=== PATIENT | female | born 1965 | race Caucasian/White ===

== ENCOUNTER → 2017-09-26 | Outpatient (CLI) | payer OTHER ==
--- NOTE | 2017-09-26 13:12 | BD ---
EXAMINATION TYPE: MG DEXA axial skeleton. DATE OF EXAM: 09/26/2017 COMPARISON: NONE CLINICAL HISTORY: N95.1 Post Menopausal Height: 5 FT 5 1/2 IN Weight: 178 FRAX RISK QUESTIONS: Alcohol (3 or more units per day): NO Family History (Parent hip fracture): NO Glucocorticoids (More than 3mos): NO (Ex: prednisone, prednisolone, methylprednisolone, dexamethasone, and hydrocortisone). History of Fracture in Adulthood: NO Secondary Osteoporosis: 1. Type 1 Diabetes: NO 2. Hyperthyroidism: NO 3. Menopause before 45: NO 4. Malnutrition: NO 5. Chronic liver disease: NO Rheumatoid Arthritis: NO Current Tobacco Use: NO RISK FACTORS HISTORY OF: Active: YES Postmenopausal woman: AGE 49 MEDICATIONS: Additional Medications: NONE ESTROVEN OTC Additional History: EXAM MEASUREMENTS: Bone mineral densitometry was performed using the [employer] System. Bone mineral density as measured about the Lumbar spine is: ----- L1-L4(G/cm2): 1.184 T Score Values are as follows: ----- L2: 0.1 ----- L3: 0.4 ----- L4: -0.5 ----- L1-L4: 0.0 BASELINE Bone mineral density about the R hip (g/cm2): 0.952 Bone mineral density about the L hip (g/cm2): 0.935 T Score values are as follows: -----R Neck: -0.6 -----L Neck: -0.7 -----R Total: 0.8 -----L Total: 0.6 BASELINE IMPRESSION: No evidence for osteoporosis or osteopenia. NOTE: T-SCORE=SD OF THE YOUNG ADULT MEAN.
--- NOTE | 2017-09-26 14:25 | MM ---
Reason for exam: screening (asymptomatic). Last mammogram was performed 4 years and 3 months ago. History: Patient is postmenopausal. Family history of breast cancer in mother at age 60. Physical Findings: A clinical breast exam by your physician is recommended on an annual basis and results should be correlated with mammographic findings. MG 3D Screening Mammo W/Cad Bilateral CC and MLO view(s) were taken. Prior study comparison: July 10, 2013, bilateral digital screening mammo w/CAD. May 13, 2008, mammogram, performed at [facility]. The breast tissue is heterogeneously dense. This may lower the sensitivity of mammography. There are stable benign calcifications. There is no discrete abnormality. No significant changes when compared with prior studies. ASSESSMENT: Benign, BI-RAD 2 RECOMMENDATION: Routine screening mammogram of both breasts in 1 year.
== END | disposition home or self-care (01) ==
LOC: RADMAMWWP 09:33
PROVIDERS: ATTEND Obstetrics & Gynecology
DX: Z12.31 Encounter for screening mammogram for malignant neoplasm of breast (principal); Z13.820 Encounter for screening for osteoporosis
CPT/HCPCS: 77063; 77067; 77080

== ENCOUNTER → 2019-02-17 | Outpatient (CLI) | payer BC ==
--- NOTE | 2019-02-18 13:55 | MM ---
Reason for exam: screening (asymptomatic). Last mammogram was performed 1 year and 5 months ago. History: Patient is postmenopausal. Family history of breast cancer in mother at age 60. Physical Findings: A clinical breast exam by your physician is recommended on an annual basis and results should be correlated with mammographic findings. MG 3D Screening Mammo W/Cad Bilateral CC and MLO view(s) were taken. Prior study comparison: September 26, 2017, bilateral MG 3d screening mammo w/cad. July 10, 2013, bilateral digital screening mammo w/CAD. The breast tissue is heterogeneously dense. This may lower the sensitivity of mammography. Benign appearing bilateral calcifications. No suspicious abnormality. ASSESSMENT: Benign, BI-RAD 2 RECOMMENDATION: Routine screening mammogram of both breasts in 1 year.
== END | disposition home or self-care (01) ==
LOC: RADMAMWWP 09:58
PROVIDERS: ATTEND Internal Medicine
DX: Z12.31 Encounter for screening mammogram for malignant neoplasm of breast (principal)
CPT/HCPCS: 77063; 77067

== ENCOUNTER 2019-05-05 11:53 | Day surgery (SDC) | payer BC ==
[2019-04-29 14:37] VITALS: BMI 28.1
[~2019-05-05 11:53] MED LIST: LACTATED RINGERS 1,000 ML IV SCH; LIDOCAINE 1% 20 ML VIAL (10MG/ML) FOR IV START INTRADERMA PRN
[2019-05-05 12:10] VITALS: RESP 18; TEMP 97.7
[2019-05-05] MEDS ORDERED: PROPOFOL 10 MG/ML 20 ML VIAL IV ONE (13:14)
--- NOTE | 2019-05-05 13:43 | P.PCN ---
Date of Procedure: 05/05/19 Description of Procedure: BRIEF HISTORY: Patient is a 54-year-old pleasant female scheduled for an elective colonoscopy as a part of screening for malignant neoplasm of the colon. She denies any family history of colon cancer, change in bowel habits, blood per rectum or abdominal pain. No prior colonoscopies reported. PROCEDURE PERFORMED: Colonoscopy. PREOPERATIVE DIAGNOSIS: Screening for malignant neoplasm of the colon, no prior colonoscopies. ESTIMATED BLOOD LOSS: Minimal. IV sedation per Anesthesia. PROCEDURE: After informed consent was obtained, the patient, was brought into the endoscopy unit. IV sedation was administered by Anesthesia under continuous monitoring. Digital rectal examination was normal. Initially the Olympus CF-190 flexible video colonoscope was then inserted in the rectum, gradually advanced into the cecum without any difficulty. Careful examination was performed as the scope was gradually being withdrawn. Ileocecal valve and the appendiceal orifice were visualized and appeared normal. Prep was excellent. Mucosa of the cecum, ascending colon, transverse colon, descending colon, sigmoid colon, and rectum appeared normal. The sigmoid colon was somewhat tortuous however was able to be transversed. Retroflexion was performed in the rectum and no lesions were seen, with mild internal hemorrhoids noted. The patient tolerated the procedure well. IMPRESSION: Normal-appearing colon from rectum to cecum. Mild internal hemorrhoids. RECOMMENDATIONS: Findings of this examination were discussed with the patient and her . Okay to resume diet. Okay to resume medications. Recommend repeat colonoscopy in 10 years, or sooner if signs or symptoms which warrant further evaluation develop.
[2019-05-05 14:08] VITALS: BP 143/81; PULSE 70
== END 2019-05-05 14:15 | disposition home or self-care (01) ==
LOC: ORWHC2ENDO 11:53
PROVIDERS: ATTEND Internal Medicine
DX: Z12.11 Encounter for screening for malignant neoplasm of colon (principal); K64.8 Other hemorrhoids; E78.5 Hyperlipidemia, unspecified; Z79.890 Hormone replacement therapy; Z79.899 Other long term (current) drug therapy
CPT/HCPCS: J2704; G0121; 45378

== ENCOUNTER → 2022-09-06 | Outpatient (CLI) | payer MEDICAID ==
--- NOTE | 2022-09-07 04:47 | MR ---
EXAMINATION TYPE: MR shoulder LT wo con DATE OF EXAM: 09/06/2022 COMPARISON: Outside left shoulder x-ray one day earlier. HISTORY: Left shoulder pain and limited range of motion. TECHNIQUE: Multiplanar, multisequence imaging of the left shoulder is performed without contrast. FINDINGS: Rotator Cuff: Fluid signal surrounds the distal supraspinatus tendon near the myotendinous junction w ith increased signal seen in the tendon distally and significant partial tearing near the humeral hea d noted. Infraspinatus tendon intact. Rotator cuff muscle bulk maintained. Acromioclavicular Joint: Moderate narrowing and capsular hypertrophy. Mild to moderate inferior spurr ing. Type II downsloping acromion with loss of underlying fat plane. Glenohumeral Joint: Moderate size joint effusion. There is glenohumeral joint narrowing with some spu rring from the inferior medial humeral head coronal image 16. Labrum: Increased signal superior labrum consistent with degenerative tearing. Biceps Tendon: The long head of biceps is in normal location within bicipital groove. Bone marrow signal: No focal abnormal marrow signal is appreciated. Other: No additional significant abnormality is appreciated. IMPRESSION: 1. Tendinosis and significant partial tearing of the distal supraspinatus tendon. 2. Degenerative changes in left shoulder as detailed above. Type II downsloping acromion with suggest ion of underlying impingement.
== END | disposition home or self-care (01) ==
LOC: RADMRIMAIN 09:30
PROVIDERS: ATTEND Orthopaedic Surgery
DX: M75.112 Incomplete rotator cuff tear or rupture of left shoulder, not specified as traumatic (principal); M19.012 Primary osteoarthritis, left shoulder

== ENCOUNTER → 2023-06-04 | Outpatient (CLI) | payer MEDICAID ==
--- NOTE | 2023-06-04 14:01 | MM ---
Reason for Exam: Screening (asymptomatic). Last mammogram was performed 4 year(s) and 3 month(s) ago. Patient History: Menarche at age 11. First Full-Term at age 22. Postmenopausal. Mother had breast cancer, age 60. Risk Values: Yeni 5 year model risk: 2.7%. NCI Lifetime model risk: 13.9%. Prior Study Comparison: 07/10/2013 Bilateral Screening Mammogram, [facility]. 09/26/2017 Bilateral Screening Mammogram, [facility]. 02/17/2019 Bilateral Screening Mammogram, [facility]. Tissue Density: The breast tissue is heterogeneously dense. This may lower the sensitivity of mammography. Findings: Analyzed By CAD. There is no suspicious group of microcalcifications or new suspicious mass. Benign-appearing calcifications left breast. Overall Assessment: Negative, BI-RAD 1 Management: Screening Mammogram of both breasts in [address] [facility] will attempt to contact patient to return for supplemental views and ultrasound if indicated. Patient should continue monthly self-breast exams. A clinical breast exam by your physician is recommended on an annual basis. This exam should not preclude additional follow-up of suspicious palpable abnormalities. Note on Yeni scores and lifetime risk: 1. A Yeni score greater than 3% is considered moderate risk. If this is the case, consider specialist referral to assess eligibility for a risk reducing agent. 2. If overall lifetime risk for the development of breast cancer is 20% or higher, the patient may qualify for future screening with alternating mammogram and breast MRI. Electronically signed and approved by: Pernell Alexis DO
== END | disposition home or self-care (01) ==
LOC: RADMAMWWP 11:30
PROVIDERS: ATTEND Internal Medicine
DX: Z12.31 Encounter for screening mammogram for malignant neoplasm of breast (principal); Z78.0 Asymptomatic menopausal state; Z80.3 Family history of malignant neoplasm of breast
CPT/HCPCS: 77063; 77067

== ENCOUNTER → 2023-10-05 | Outpatient (CLI) | payer BC ==
--- NOTE | 2023-10-05 16:27 | US ---
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 Mild pelvocaliectasis Left Kidney: Mild pelvocaliectasis Bladder: wnl Bilateral Jets seen: yes Incidental colonhydropic GB measuring 13.5 cm long. Clustered gallstones near the gallbladder neck region. No surrounding fluid or wall thickening. IMPRESSION: 1. Mild bilateral pelvicaliectasis. This may be a transient finding. Short interval follow-up to excl ude early hydronephrosis. 2. Cholelithiasis and hydropic gallbladder. The excessive distention may be due to fasting state. Cli nically correlate. If concern for early acute cholecystitis, follow-up ultrasound or HIDA scan.
== END | disposition home or self-care (01) ==
LOC: RADUSWWP 12:07
PROVIDERS: ATTEND Internal Medicine
DX: K80.20 Calculus of gallbladder without cholecystitis without obstruction (principal); K82.1 Hydrops of gallbladder; N28.89 Other specified disorders of kidney and ureter; R94.4 Abnormal results of kidney function studies; R80.8 Other proteinuria
CPT/HCPCS: 76770

== ENCOUNTER → 2023-11-16 | Outpatient (CLI) | payer BC ==
[2023-11-16 16:06] LABS: Blood Urea Nitrogen 17.2 mg/dL (9.0-27.0); Chloride 104 mmol/L (96-109); Glucose 125 mg/dL (70-110); Sodium 142 mmol/L (135-145)
[2023-11-16 16:07] LABS: Calcium 9.2 mg/dL (8.7-10.3); Carbon Dioxide 27.6 mmol/L (21.6-31.8)
== END | disposition home or self-care (01) ==
LOC: LABWHC1 12:13
PROVIDERS: ATTEND Nurse Practitioner Acute Care
DX: N18.9 Chronic kidney disease, unspecified (principal)
CPT/HCPCS: 36415; 80048

== ENCOUNTER → 2024-03-04 | Outpatient (CLI) | payer BC ==
[2024-03-04 12:47] LABS: Creatinine,Urine Random 344.9 mg/dL
[2024-03-04 14:17] LABS: Appearance,Urine Clear (Clear); Bilirubin,Urine Negative (Negative); Blood,Urine Negative (Negative); Color,Urine Dark Yellow (Yellow); Ketones,Urine Trace (Negative); Nitrite,Urine Negative (Negative); Specific Gravity,Urine 1.024 (1.001-1.030); Urobilinogen,Urine 0.2 E.U./DL
[2024-03-04 14:19] LABS: Microalbumin Creatinine Ratio <4 mg/g Cr (0-30)
[2024-03-04 14:24] LABS: HCT 41.8 % (37.2-46.3); MCH 31.9 pg (27.0-32.0); MCHC 33.5 g/dL (32.0-37.0); MCV 95.2 FL (80.0-97.0); Mean Platelet Volume 8.8 FL (9.5-12.2); NRBC Per 100 WBC 0 X 10*3/uL (0.00-0.01); Platelet Count 396 X 10*3/uL (140-440); RBC 4.39 X 10*6/uL (4.10-5.20); RDW 12.5 % (11.5-14.5); WBC 8.78 X 10*3/uL (4.50-10.00)
[2024-03-04 14:25] LABS: Bacteria,Urine None Seen (None Seen)
[2024-03-04 14:34] LABS: BUN/Creat Ratio 16.18 Ratio (12.00-20.00); Blood Urea Nitrogen 17.8 mg/dL (9.0-27.0); Calcium 9.5 mg/dL (8.7-10.3); Carbon Dioxide 23.6 mmol/L (21.6-31.8); Chloride 108 mmol/L (96-109); Glucose 100 mg/dL (70-110); Magnesium 2.2 mg/dL (1.5-2.4); Phosphorus 3.8 mg/dL (2.4-5.1); Potassium 4.5 mmol/L (3.5-5.5); Sodium 144 mmol/L (135-145)
== END | disposition home or self-care (01) ==
LOC: LABWHC1 11:24
PROVIDERS: ATTEND Nurse Practitioner Acute Care
DX: N39.0 Urinary tract infection, site not specified (principal); R80.9 Proteinuria, unspecified; N18.9 Chronic kidney disease, unspecified; D63.1 Anemia in chronic kidney disease
CPT/HCPCS: 36415; 80048; 81001; 82043; 82570; 83735; 84100; 84156; 85027

== ENCOUNTER → 2024-03-21 | Outpatient (CLI) | payer BC ==
[2024-03-21 15:41] LABS: BUN/Creat Ratio 16.55 Ratio (12.00-20.00); Blood Urea Nitrogen 18.2 mg/dL (9.0-27.0); Calcium 9.8 mg/dL (8.7-10.3); Carbon Dioxide 24.5 mmol/L (21.6-31.8); Chloride 104 mmol/L (96-109); Glucose 104 mg/dL (70-110); Potassium 4.7 mmol/L (3.5-5.5); Sodium 140 mmol/L (135-145)
== END | disposition home or self-care (01) ==
LOC: LABWHC1 10:17
PROVIDERS: ATTEND Nurse Practitioner Acute Care
DX: N18.9 Chronic kidney disease, unspecified (principal)
CPT/HCPCS: 36415; 80048

== ENCOUNTER → 2024-08-27 | Outpatient (CLI) | payer BC ==
[2024-08-27 16:07] LABS: Blood Urea Nitrogen 16.8 mg/dL (9.0-27.0); Calcium 9.4 mg/dL (8.7-10.3); Carbon Dioxide 26.4 mmol/L (21.6-31.8); Chloride 105 mmol/L (96-109); Glucose 95 mg/dL (70-110); Potassium 4.3 mmol/L (3.5-5.5); Sodium 141 mmol/L (135-145)
== END | disposition home or self-care (01) ==
LOC: LABWHC1 09:13
PROVIDERS: ATTEND Internal Medicine
DX: N18.9 Chronic kidney disease, unspecified (principal)
CPT/HCPCS: 36415; 80048

== ENCOUNTER → 2024-09-19 | Outpatient (CLI) | payer BC ==
--- NOTE | 2024-09-22 07:53 | MM ---
Reason for Exam: Screening (asymptomatic). Last mammogram was performed 1 year(s) and 4 month(s) ago. Patient History: Menarche at age 11. First Full-Term at age 22. Postmenopausal. Mother had breast cancer, age 60. Risk Values: Yeni 5 year model risk: 2.7%. NCI Lifetime model risk: 13.6%. Prior Study Comparison: 09/26/2017 Bilateral Screening Mammogram, [facility]. 02/17/2019 Bilateral Screening Mammogram, [facility]. 06/04/2023 Bilateral MG 3D screening mammo w/cad, [facility]. Tissue Density: The breasts are heterogeneously dense, which may obscure small masses. Findings: Analyzed By CAD. Right breast: There is no suspicious group of microcalcifications or new suspicious mass. Left breast: There is no suspicious group of microcalcifications or new suspicious mass. Overall Assessment: Negative, BI-RAD 1 Management: Screening Mammogram of both breasts in [address] [facility] will attempt to contact patient to return for supplemental views and ultrasound if indicated. Patient should continue monthly self-breast exams. A clinical breast exam by your physician is recommended on an annual basis. This exam should not preclude additional follow-up of suspicious palpable abnormalities. Note on Yeni scores and lifetime risk: 1. A Yeni score greater than 3% is considered moderate risk. If this is the case, consider specialist referral to assess eligibility for a risk reducing agent. 2. If overall lifetime risk for the development of breast cancer is 20% or higher, the patient may qualify for future screening with alternating mammogram and breast MRI. [facility], , 09/22/2024 7:50 AM. Electronically signed and approved by: Pernell Alexis DO
== END | disposition home or self-care (01) ==
LOC: RADMAMWWP 11:15
PROVIDERS: ATTEND Internal Medicine
DX: Z12.31 Encounter for screening mammogram for malignant neoplasm of breast (principal); Z78.0 Asymptomatic menopausal state; Z80.3 Family history of malignant neoplasm of breast; R92.333 Mammographic heterogeneous density, bilateral breasts
CPT/HCPCS: 77063; 77067

== ENCOUNTER → 2025-03-19 | Outpatient (CLI) | payer BC ==
--- NOTE | 2025-03-19 09:10 | US ---
EXAMINATION TYPE: US abdomen complete DATE OF EXAM: 03/19/2025 COMPARISON: Renal ultrasound 10/05/2023 CLINICAL INDICATION: Female, 59 years old with history of R10.9 UNSPE ABD PAIN; pain/bloating/diarrhe a x 1 month TECHNIQUE: Grayscale and color Doppler imaging of the abdomen was performed. FINDINGS: EXAM MEASUREMENTS: Liver Length: 15.0cm Gallbladder Wall: 0.2cm CBD: 0.3cm color Doppler imaging was utilized to isolate the common bile duct for measurement. Spleen: 8.5cm Right Kidney: 10.7x5.0x5.0cm Left Kidney: 11.2x4.9x5.3cm DOCK SUPERINTENDENT NOTES: limited scan due to overlying bowel Pancreas: Tail obscured by overlying bowel gas Liver: Increased attenuation, decreased visualization of vessels suggestive of fatty infiltrate, sli ghtly difficult to penetrate Gallbladder: Multiple echogenic foci seen, Gallbladder: 14.6cm Evidence for sonographic Sanchez's sign: No CBD: wnl Spleen: wnl Right Kidney: anechoic area seen: 1.2x1.3x1.6cm, ? echogenic foci: 0.6cm Left Kidney: ?extra dilatated renal pelvis Upper IVC: wnl as best seen Abd Aorta: wnl as best seen Visualized portions of the pancreas are unremarkable. The liver demonstrates diffusely increased echo genicity with some slight difficulty in penetration. No overt surface nodularity. No focal lesion kelli ntified. Hydropic gallbladder with multiple layering calculi. No wall thickening or surrounding fluid . Negative sonographic Sanchez's sign. Common bile duct is within normal limits. Spleen is unremarkabl e. No hydronephrosis identified. Corticomedullary differentiation is maintained bilaterally. Simple r ight renal cyst. Nonobstructing right renal calculus. Prominent left extrarenal pelvis. The upper IVC and abdominal aorta are within normal limits. IMPRESSION: 1. No evidence for obstructive uropathy. 2. Nonobstructing right renal calculus. 3. Hepatic steatosis. 4. Hydropic gallbladder with cholelithiasis. No ultrasound evidence for acute cholecystitis. [facility], , 03/19/2025 9:08 AM
== END | disposition home or self-care (01) ==
LOC: RADUSWWP 08:20
PROVIDERS: ATTEND Internal Medicine
DX: N20.0 Calculus of kidney (principal); K76.0 Fatty (change of) liver, not elsewhere classified; K80.20 Calculus of gallbladder without cholecystitis without obstruction
CPT/HCPCS: 76700